=== PATIENT | female | born 1990 | race African-American/Black ===

== ENCOUNTER 2023-05-02 10:00 | Emergency (ER) | payer OTHER, SELFPAY ==
--- NOTE | ~2023-05-02 | XR_ITS ---
EXAMINATION: XR chest 2V DATE: 05/02/2023 10:50 INDICATION: Chest pain TECHNIQUE: PA and lateral views of the chest are obtained. COMPARISON: None available FINDINGS: The lungs are free of acute opacities. No pleural effusion or pneumothorax. The cardiomedia stinal silhouette is normal. The visualized bones and soft tissues are unremarkable. IMPRESSION: 1. No acute cardiopulmonary abnormality. Reviewed, dictated and finalized at location L.
--- NOTE | 2023-05-02 10:02 | ECG_ITS ---
Measurements Intervals [place] Rate: 68 P: 52 MS: 170 QRS: 15 QRSD: 73 T: 21 QT: 343 QTc: 366 Interpretive Statements SINUS RHYTHM NORMAL ELECTROCARDIOGRAM NO PREVIOUS ECG AVAILABLE FOR COMPARISON Electronically Signed On 05-02-2023 14:31:10 CDT by Carlos Delvalle M.D.
[2023-05-02 10:07] VITALS: BP 153/98; PULSE 69; RESP 20; TEMP 36.6; O2SAT 100
[2023-05-02 10:19] LABS: Basophils Percent Auto 0.4 % (0.2-1.2); Eosinophils Absolute Auto 0.1 K/mm3 (0-0.3); Eosinophils Percent Auto 1.1 % (0-4.4); Hematocrit 36.1 % (37.0-47.0); Hemoglobin 12.6 g/dL (12.0-15.0); Immature Granulocyte Absolute 0.01 K/mm3 (0.00-0.031); Immature Granulocyte Percent A 0.2 % (0-0.5); Lymphocytes Absolute Auto 2.01 K/mm3 (0.9-3.2); Lymphocytes Percent Auto 37.9 % (18.3-44.2); Mean Corpuscular HGB Conc 34.9 g/dl (32-36); Mean Corpuscular Hemoglobin 26.1 pg (26-34); Mean Corpuscular Volume 74.7 fl (80-100); Mean Platelet Volume 10.9 fl (7.4-10.4); Monocytes Absolute Auto 0.2 K/mm3 (0.1-0.6); Monocytes Percent Auto 4.3 % (2.6-8.5); Neutrophils Percent Auto 56.1 % (45.5-73.1); Platelet Count Result 232 k/mm3 (150-375); Red Blood Count 4.83 M/mm3 (4.2-5.4); Red Cell Distribution Width 13.3 % (11.5-14.5); White Blood Count 5.3 K/mm3 (4.5-10.0)
[2023-05-02 10:30] LABS: Alanine Aminotransferase 19 U/L (6-35); Albumin Level 4.4 g/dL (3.5-5.1); Alkaline Phosphatase 48 U/L (38-126); Anion Gap 5 mmol/L (8-16); Aspartate Amino Transferase 25 U/L (14-36); Bilirubin,Total 0.6 mg/dL (0.2-1.3); Blood Urea Nitrogen 14 mg/dL (7-17); Calcium 8.6 mg/dL (8.4-10.2); Carbon Dioxide 29 mmol/L (22-30); Chloride 102 mmol/L (98-107); Estimated Glomerular Filt Rate > 60; Glucose 90 mg/dL (65-110); Lipase 72 U/L (23-300); Potassium 4.3 mmol/L (3.4-5.0); Sodium 136 mmol/L (137-145)
[2023-05-02 10:32] LABS: Prothrombin Time 13.1 Seconds (11.1-14.7)
[2023-05-02 10:33] LABS: Partial Thromboplastin Time 26.1 SECONDS (22.3-36.8)
[2023-05-02 10:36] LABS: Microcytosis 1+ (NORMAL); Platelet Estimate Adequate (Adequate); Schistocytes None Seen (NORMAL)
[2023-05-02 10:42] LABS: Troponin I < 0.012 ng/mL (0.000-0.034)
--- NOTE | 2023-05-02 11:27 | ED.GENADULT ---
HPI - General Adult General Chief complaint: Chest Pain Stated complaint: chest pain Time Seen by Provider: 05/02/23 10:56 Source: patient Mode of arrival: ambulatory Limitations: no limitations History of Present Illness HPI narrative: This is a 33-year-old female who presents to the ED with chief complaint of intermittent chest pain beginning yesterday evening. Patient states that her pain worsened today while she was moving pallets at work. She reports specifically pulling on the palate seem to worsen the pain. Pain is located in the right side of the chest and does not radiate. Denies any associated shortness of breath, LOC or vomiting. She is not nauseous. She feels that it is probably a muscle strain. She has a very physical treatment for his job. Denies any family history of sudden cardiac . She has no cardiac history. Denies fevers, chills, recent cough or any direct trauma. Related Data Allergies Allergy/AdvReac Type Severity Reaction Status Date / Time No Known Allergies Allergy Verified 05/02/23 12:07 Review of Systems Review of Systems: All systems as dictated in HPI Exam Narrative: GENERAL: Well-appearing, well-nourished, and in no acute distress. HEAD: Normocephalic, atraumatic. EYES: PERRLA and EOMI. ENT: Nares clear, no rhinorrhea or epistaxis. Mucous membranes moist. Oropharynx without tonsillar hypertrophy exudate or other lesions. NECK: Supple. No adenopathy or masses. CHEST: No respiratory distress. Clear to auscultation. No wheezes rales or rhonchi HEART: Regular rate and rhythm. No murmur heard. Normal peripheral pulses. ABDOMEN: Soft, nontender, nondistended, normal active bowel sounds. MSK: Normal range of motion. No edema. SKIN: Warm, dry, no rash. NEURO: Alert and oriented x3. No focal deficits. PSYCH: Normal mood and affect. Course Vital Signs Vital signs: Vital Signs Temperature 98 F 05/02/23 10:07 Pulse Rate 69 05/02/23 10:07 Respiratory Rate 20 05/02/23 10:07 Blood Pressure 153/98 H 05/02/23 10:07 Pulse Oximetry 100 05/02/23 10:07 Oxygen Delivery Room Air 05/02/23 10:07 Temperature 98 F 05/02/23 10:07 Pulse Rate 70 05/02/23 12:06 Respiratory Rate 18 05/02/23 12:06 Blood Pressure 128/82 05/02/23 12:06 Pulse Oximetry 100 05/02/23 12:06 Oxygen Delivery Room Air 05/02/23 12:01 Medical Decision Making MDM Narrative Medical decision making narrative: This is a 33-year-old female who presents to the ED with chief complaint of right chest wall pain beginning this morning. Vitals are normal. Exam is unremarkable. She works a very physically laborious job and feels like she pulled a muscle in the chest. She has PERC negative. EKG shows normal sinus rhythm. Troponin is negative. She is symptom-free here in the ER. Other labs grossly unremarkable. Heart score 0. Symptoms are consistent with chest wall pain due to strain. Pt will be discharged in stable condition. Return precautions given and supportive measures discussed. Pt is understanding and agreeable with plan for discharge and follow-up with PCP. Vital Signs Vital Signs: Vital Signs Temperature 98 F 05/02/23 10:07 Pulse Rate 69 05/02/23 10:07 Respiratory Rate 20 05/02/23 10:07 Blood Pressure 153/98 H 05/02/23 10:07 Pulse Oximetry 100 05/02/23 10:07 Oxygen Delivery Room Air 05/02/23 10:07 Temperature 98 F 05/02/23 10:07 Pulse Rate 70 05/02/23 12:06 Respiratory Rate 18 05/02/23 12:06 Blood Pressure 128/82 05/02/23 12:06 Pulse Oximetry 100 05/02/23 12:06 Oxygen Delivery Room Air 05/02/23 12:01 Lab Data 05/02/23 10:12 05/02/23 10:12 Labs: Lab Results 05/02/23 Range/Units 10:12 WBC 5.3 (4.5-10.0) K/mm3 RBC 4.83 (4.2-5.4) M/mm3 Hgb 12.6 (12.0-15.0) g/dL Hct 36.1 L (37.0-47.0) % MCV 74.7 L (80-100) fl MCH 26.1 (26-34) pg MCHC 34.9 (32-36) g/dl RDW
[2023-05-02 12:01] VITALS: O2SAT 100
[2023-05-02 12:06] VITALS: BP 128/82; PULSE 70; RESP 18; O2SAT 100
[2023-05-02] MEDS: ASPIRIN 81 MG CHEWABLE TABLET 324 MG PO (12:08)
== END 2023-05-02 12:20 | disposition home or self-care (01) ==
PROVIDERS: Student in an Organized Health Care Education/Training Program; Emergency Provider Physician Assistant
DX: S29.011A Strain of muscle and tendon of front wall of thorax, initial encounter (principal); X50.0XXA Overexertion from strenuous movement or load, initial encounter
CPT/HCPCS: 36415; 71046; 80053; 83690; 84484; 85025; 85610; 85730; 93005; 99284; A9270